=== PATIENT | male | born 1980 | race Caucasian/White ===

== ENCOUNTER 2021-08-18 15:45 | Emergency (ER) | payer SELFPAY ==
[~2021-08-18] VITALS: Ht 162.6 cm; Wt 52.3 kg
[~2021-08-18 15:45] MED LIST: AUGM875T28 PO; DEBR6.5S4 OTIC; FLON1SPR NARES; IBUP-1022 PO
[2021-08-18] MEDS ORDERED: LIDOCAINE 5% (LIDODERM) PATCH TD ONE (20:05)
[2021-08-18] MEDS ORDERED: KETOROLAC 30 MG/ML 1ML VIAL IM ONE (20:05)
[2021-08-18] MEDS ORDERED: methocarbamoL 750 MG TAB PO ONE (20:05)
[2021-08-18] MEDS ORDERED: **NOTE PATIENT COMMENT** MISC XX SCH (21:00)
[2021-08-18] MEDS ORDERED: METH-1165 PO (21:50)
[2021-08-18] MEDS ORDERED: KETO10TAB PO (21:50)
[2021-08-18] MEDS ORDERED: LIDO5DIS41 TD (21:50)
[2021-08-18 21:56] VITALS: BP 138/78
== END 2021-08-18 21:58 | disposition home or self-care (01) ==
LOC: M ED 15:45
DX: S39.012A Strain of muscle, fascia and tendon of lower back, initial encounter (principal); X50.0XXA Overexertion from strenuous movement or load, initial encounter; Y92.9 Unspecified place or not applicable; Y93.9 Activity, unspecified; Y99.0 Civilian activity done for income or pay; F17.200 Nicotine dependence, unspecified, uncomplicated; Z79.899 Other long term (current) drug therapy
CPT/HCPCS: 96372; 99283; J1885

== ENCOUNTER 2022-06-28 20:50 | Emergency (ER) | payer OTHER, SELFPAY ==
[~2022-06-28] VITALS: Ht 162.6 cm; Wt 52.3 kg
[~2022-06-28 20:50] MED LIST changes: +KETO10TAB PO; +LIDO5DIS41 TD; +METH-1165 PO
[2022-06-29] MEDS ORDERED: KETOROLAC 60MG 2ML VIAL IM ONE (04:00)
[2022-06-29] MEDS ORDERED: KETO10TAB PO (04:05)
[2022-06-29 04:25] VITALS: BP 126/91
== END 2022-06-29 04:26 | disposition home or self-care (01) ==
LOC: M ED 20:50
DX: R07.89 Other chest pain (principal); W01.198A Fall on same level from slipping, tripping and stumbling with subsequent striking against other object, initial encounter; Y92.009 Unspecified place in unspecified non-institutional (private) residence as the place of occurrence of the external cause; F17.210 Nicotine dependence, cigarettes, uncomplicated
CPT/HCPCS: 71101; 96372; 99283; J1885